=== PATIENT | female | born 1990 | race Caucasian/White ===

== ENCOUNTER → 2019-07-17 15:44 | Outpatient (BNVA) | payer OTHER, SELFPAY | PROVIDERS: Family Provider Family Medicine; PCP Family Medicine; Visit Provider Podiatrist Foot & Ankle Surgery | DX: M79.671 Pain in right foot (principal); M79.672 Pain in left foot | CPT/HCPCS: 73620; 73630 ==

== ENCOUNTER → 2020-02-19 13:39 | Outpatient (BNVA) | payer OTHER, SELFPAY | PROVIDERS: Family Provider Family Medicine; PCP Family Medicine; Visit Provider Internal Medicine | DX: Z20.828 Contact with and (suspected) exposure to other viral communicable diseases (principal) | CPT/HCPCS: 87635 ==

== ENCOUNTER 2020-02-23 04:48 | Emergency (ER) | payer OTHER, SELFPAY ==
[2020-02-23 04:54] VITALS: BP 153/73; PULSE 91; RESP 16; TEMP 36.9; O2SAT 98
--- NOTE | 2020-02-23 05:04 | PC.NURSE ---
Patient ambulatory during triage. Speaking in complete sentences without difficulty. Respirations are even and unlabored.
[2020-02-23 05:18] VITALS: BP 112/69; PULSE 90; RESP 18; O2SAT 96
--- NOTE | 2020-02-23 05:27 | XRR_ITS ---
PROCEDURE INFORMATION: Exam: XR Soft Tissue Neck Exam date and time: 02/23/2020 5:29 AM Age: 30 years old Clinical indication: Throat pain; Additional info: SOB TECHNIQUE: Imaging protocol: XR of the soft tissues of the neck. COMPARISON: No relevant prior studies available. FINDINGS: Airway: Unremarkable. No abnormal narrowing. Soft tissues: Unremarkable. Normal epiglottis. Bones/joints: Small spurs along the anterior margins of the C4-C5 and C5-C6 discs. Probable slight spurring along a few facet joints. No disc narrowing or cervical malalignment. XR/XR soft tissue neck [id number] IMPRESSION: No acute finding.
--- NOTE | 2020-02-23 05:27 | XRR_ITS ---
PROCEDURE INFORMATION: Exam: XR Chest, 1 View Exam date and time: 02/23/2020 5:29 AM Age: 30 years old Clinical indication: Dyspnea; Additional info: SOB TECHNIQUE: Imaging protocol: XR of the chest Views: 1 view. COMPARISON: CR Chest 2 views* [id number] 11/20/2013 2:19 PM FINDINGS: Lungs: No apparent interval lung disease. Pleural space: Still no pneumothorax or apparent pleural fluid. Heart/Mediastinum: Still no cardiomegaly. Bones/joints: Unremarkable. XR/XR chest 1V portable [id number] IMPRESSION: No acute findings.
[2020-02-23] MEDS: HYDROcodone-APAP 7.5-325 mg/15 mL UDC PO (05:37)
[2020-02-23] MEDS: dexamethasone 4 mg Tablet 10 MG PO (05:38)
[2020-02-23 06:00] VITALS: BP 115/82; PULSE 86; RESP 16; O2SAT 95
[2020-02-23] MEDS: ondansetron 4 MG Tablet PO (06:33)
[2020-02-23 06:48] VITALS: BP 120/83; PULSE 91; RESP 16; O2SAT 95
--- NOTE | 2020-02-23 07:29 | ED_ITS ---
HPI - General Adult General: Chief complaint: General Medical Stated complaint: throat swelling Time Seen by Provider: 02/23/20 05:08 History of Present Illness: MD complaint: 80-year-old female with known COVID- 19 presents with a feeling of fullness and soreness in her throat. She notes she is having trouble swallowing, and it is causing her to have trouble breathing. She is not had much in the way of fever. Has had a mild cough. Onset (ago): day(s) Location: neck Radiation: non-radiation Severity: moderate Quality: stabbing and aching Pain Consistency: constant Relieving factors: none Exacerbating factors: other (Swallowing) Associated symptoms: Reports dyspnea, fevers/chills and nausea; Deny chest pain, rash, palpitations or vomiting Review of Systems Const: Reports: fever(s); Denies: chills Eyes: Denies: change in vision Card: Denies: chest pain or palpitations Resp: Reports: dyspnea; Denies: productive cough, non-productive cough or wheezing GI: Reports: nausea; Denies: vomiting Skin/Breast: Denies: rash PFSH ED PFSH: Medical History (Updated 02/23/20 @ 06:30 by Keyshawn Lacey DO) Bunion of great toe of right foot Hx of fracture of clavicle 2002 Surgical History History of open reduction and internal fixation (ORIF) procedure left forearm both bone fracture in 07/2001 Hx of appendectomy Hx of unilateral oophorectomy Left side Family History Family/Other Cancer breast cancer Hypertension Grandmother Diabetes Mother Heart attack Denies family history of CAD (coronary artery disease) Clotting disorder Dementia Hyperlipidemia Psychiatric illness Chronic kidney disease (CKD) Suicide Anesthesia complication Bleeding disorder Family history of premature coronary artery disease Lung disease Stroke Social History Smoking and tobacco status: never smoked Alcohol intake: never Current occupational status: employed Physical Exam Const: COMMON NORMALS: patient oriented x3 HENMT: THROAT: uvula midline and posterior oropharynx abnormal edema and erythema; no peritonsillar mass Chest: COMMONS NORMALS: normal inspection of the chest Resp: COMMON NORMALS: normal respiratory effort, No retractions, No use of accessory muscles and clear to auscultation bilaterally AUSCULTATION: clear to auscultation bilaterally Cardio: COMMON NORMALS: regular rate and regular rhythm RATE: regular rate RHYTHM: regular rhythm HEART SOUNDS: no murmurs GI: COMMON NORMALS: Normal to inspection, nondistended, normoactive bowel sounds present, Soft to palpation and non-tender PALPATION: Yes Soft to palpation Neuro: COMMON NORMALS: patient oriented x3 and no focal motor deficits Course Vital Signs: Vital signs: Vital Signs Temperature 98.4 F 02/23/20 04:54 Pulse Rate 91 02/23/20 06:48 Respiratory Rate 16 02/23/20 06:48 Blood Pressure 120/83 02/23/20 06:48 Pulse Oximetry 95 02/23/20 06:48 Discharge Plan Discharge Patient Disposition: Home Clinical Impression: COVID-19 Acute pharyngitis Qualifiers: Pharyngitis/tonsillitis etiology: other specified organisms Qualified Code(s): J02.8 - Acute pharyngitis due to other specified organisms Condition: Stable Prescriptions: New dexamethasone 6 mg tablet 6 mg PO Q24H Qty: 5 RF: 0 hydrocodone-acetaminophen 7.5-325 mg/15 mL solution 15 ml PO Q8H PRN (Reason: pain) Qty: 120 RF: 0 Discharge Orders: Discharge Order (Routine); Ordered 02/23/20 Ordered By: Keyshawn Lacey Referrals: Josias Owens MD [Primary Care Provider] - 4-7 days Discharge Diet: Advance as tolerated Discharge Activity: Increase activity as tolerated Patient Instructions: Pharyngitis (ED) Activity Restrictions/Additional Instructions: Return for continued fever greater than 100, shortness of breath, worsening pain or swelling of the throat despite treatment, other concerning symptoms. Discharge Date/Time: 02/23/20 06:57 Coding Level of Care Code ED Supervisor Safety Deposit for Hafsa Garsia
== END 2020-02-23 06:57 | disposition home or self-care (01) ==
PROVIDERS: Emergency Provider Emergency Medicine; PCP Family Medicine
DX: U07.1 COVID-19 (principal); J02.8 Acute pharyngitis due to other specified organisms
CPT/HCPCS: 12345; 70360; 71045; 99281; 99283; J8540; Q0162

== ENCOUNTER → 2021-02-17 15:35 | Outpatient (BNVA) | payer OTHER, SELFPAY | PROVIDERS: PCP Family Medicine; Visit Provider Nurse Practitioner Family | DX: R53.83 Other fatigue (principal); H60.509 Unspecified acute noninfective otitis externa, unspecified ear; Z12.39 Encounter for other screening for malignant neoplasm of breast | CPT/HCPCS: 80053; 80061; 82306; 82607; 82728; 83036; 83550; 84443 ==

== ENCOUNTER → 2021-10-11 13:08 | Outpatient (BNVA) | payer OTHER, SELFPAY | PROVIDERS: PCP Internal Medicine; Visit Provider Obstetrics & Gynecology | DX: N91.0 Primary amenorrhea (principal); Z90.721 Acquired absence of ovaries, unilateral | CPT/HCPCS: 76856 ==

== ENCOUNTER → 2022-02-16 08:49 | Outpatient (BNVA) | payer OTHER, SELFPAY | PROVIDERS: PCP Internal Medicine; Visit Provider Podiatrist Foot & Ankle Surgery | DX: M21.612 Bunion of left foot (principal) | CPT/HCPCS: 73630 ==

== ENCOUNTER 2022-04-19 06:39 | Outpatient (CLI) | payer OTHER, SELFPAY ==
--- NOTE | 2022-04-19 07:11 | CT_ITS ---
WS: [id number] CT FACIAL BONES HISTORY: PERSONAL HISTORY OF (HEALED) TRAUMATIC FRACTURE TECHNIQUE: Images obtained from the supraorbital location through the mandible. Soft tissue and bone windows are reviewed. Coronal and sagittal reformats have also been submitted. DLP: 1063.[address] scans at [facility] use at least one of these dose optimization techniques: automated e xposure control; mA and/or kV adjustment per patient size (includes targeted exams where dose is matc hed to clinical indication); or iterative reconstruction. COMPARISON: None available. No acute facial bone fractures are identified. There are no air-fluid levels within the sinus cavitie s. Small mucous retention cyst in the RIGHT maxillary sinus. There is a symmetric appearance to the b ones along the roof and floor the orbit and involving the ethmoid sinuses. Mild soft tissue obstructi on of the RIGHT ostiomeatal unit. There is a small amount of air in the LEFT lacrimal duct and lacrimal sac. This can be a normal varia nt and normal finding. No bony dehiscence or obvious communication between the sinus and orbit is valdemar ntified by CT. There is a very symmetric appearance of the soft tissues. CT/CT facial bones wo con* [id number] IMPRESSION: 1. No orbital fracture or direct communication between the sinus cavities and orbit. 2. There is a small amount of air in the LEFT lacrimal duct and sac which is a normal finding and can be seen with approximately 30% of patients. 3. No fractures, acute or healed identified.
== END 2022-04-19 06:40 | disposition home or self-care (01) ==
PROVIDERS: Visit Provider Specialist
DX: Z87.81 Personal history of (healed) traumatic fracture (principal)
CPT/HCPCS: 70486

== ENCOUNTER 2022-04-28 05:40 | Day surgery (SDC) | payer OTHER, SELFPAY ==
[2022-04-27 09:14] VITALS: BMI 29.8
[2022-04-28] VITALS (18 sets, daily range): BP systolic 87–125; BP diastolic 45–86; PULSE 70–89; RESP 10–22; TEMP 36.1–36.6; O2SAT 98–100
--- NOTE | 2022-04-28 | XR_ITS ---
WS: [id number] XR foot LT 2V [id number] REASON FOR EXAM: left lapidus and buniectormy FINDINGS: Single AP view of the left forefoot in surgery. Plate and screw and long screw fixation of the first tarsal metatarsal joint. XR/XR foot LT 2V [id number] IMPRESSION: Arthrodesis left foot as above.
--- NOTE | 2022-04-28 05:43 | P.HP_ITS ---
Providers/Chief Complaint Chief Complaint: M21.612 History of Present Illness Columba Rios is a 32 year old female presents with complaints of pain to her left foot. She had a progression of bunion deformity with increased pain at her left bunion. History of a bunionectomy performed to her right foot in [place] approximately 2 years ago. States that she would like to have her left bunion fixed as this affects her on a daily basis. Conservative treatments that she has tried to this point are wider and accommodative shoes, stretching, padding and spacing and anti-inflammatories without improvement. She has pain at her left bunion on a daily basis, describes the nature of the pain as sharp and is increased with activities. She works at [employer] and is on her feet for long periods of time. Patient denies any subjective nausea, vomiting, fever, chills, shortness of breath or chest pain. Review of Systems General: Reports: 10 or more systems reviewed and unremarkable except in HPI and below Const: Denies: fever(s) or chills Eyes: Denies: change in vision Card: Denies: chest pain or palpitations Resp: Denies: dyspnea or productive cough GI: Denies: abdominal pain, nausea or vomiting : Denies: flank pain Musc: Reports: extremity pain, joint pain, joint stiffness, limited range of motion and deformity Skin/Breast: Reports: skin tenderness; Denies: rash Neuro: Reports: difficulty walking; Denies: numbness in extremities, sensory changes or frequent falls Psych: Denies: suicidal ideation Niraj/Lymph: Denies: easy bruising Medications/Allergies Home Medications Medication Instructions Recorded Confirmed Last Taken Type ondansetron HCl 8 mg tablet 8 mg PO Q8H PRN nausea and 04/28/22 Unknown Rx vomiting 7 days #21 tabs Allergies Allergy/AdvReac Type Severity Reaction Status Date / Time No Known Allergies Allergy Verified 04/28/22 06:07 PFSH PFSH: Medical History Endometriosis Diagnosed in 2017 at the time of surgery per patient. Records have been requested. No pertinent past medical history Denies diabetes, asthma, hypertension, seizures, DVT/PE PCP: Paty/Shana Manzanares ONLINE MEDIA DIRECTOR Surgical History History of open reduction and internal fixation (ORIF) procedure left forearm both bone fracture in 07/2001 at [facility] Hx of appendectomy 2014--Pfannenstiel open procedure performed at time of left ovarian cystectomy--performed at [facility] Hx of fracture of clavicle 2002---had surgery done with plates placed Hx of unilateral oophorectomy 01/05/2017----- exploratory laparotomy, hysteroscopy, D&C, left salpingo- oophorectomy performed by Dr. Little at [facility]. ------> operative reports requested and scanned. Hysteroscopy was performed for menorrhagia and endometrium was noted to be thin, bilateral tubal ostia were visualized and ECC performed. Pfannenstiel incision done--moderate adhesions of the small bowel to the posterior uterus left adnexa and right fallopian tube the left tube and ovary were removed--endometrioma was noted. S/P ovarian cystectomy 03/21/2015----diagnostic laparoscopy, exploratory laparotomy with repair of left hemorrhagic cyst of the ovary performed by Dr. Cronin at [facility]. Simultaneously laparoscopic appendectomy performed by Dr. Saji Forbes. - operative reports have been requested and scanned -At time of diagnostic laparoscopy a lot of fibrinous exudate was noted around the bowel and general surgery was consulted and appendix was visualized which was noted to be inflamed and removed. When pelvis was visualized an enlarged left ovary was noted with hemorrhagic cyst and a lot of fibrinous exudate and so laparotomy was performed. The hemorrhagic cyst was opened and suctioned out and no obvious signs of endometriosis identified however a portion of the lining was sent for pathology. Ovary was repaired and fibrinous exudate removed and irrigation performed and surgery completed. Status post bunionectomy Had a bunion removed from her right foot in [facility] Status post excision of lipoma 2017--had a benign lipoma removed from her upper back Family History Family/Other Breast cancer Maternal aunts x 2, diagnosed in 40s and 50s Grandmother Diabetes paternal Heart disease maternal Mother Heart disease Hypertension Father Hypertension Grandfather Stroke maternal Denies family history of Colon cancer Ovarian cancer Hyperlipidemia Uterine cancer Thyroid condition Social History Smoking and tobacco status: never smoked Vital Signs Weight: Weight last 48 hrs Weight 185 lb Physical Exam Narrative: EXAM NARRATIVE: GENERAL: Patient is alert and oriented ?3 and in no acute distress.? The following is a focused bilateral lower extremity exam. VASCULAR: Dorsalis pedis and posterior tibial arteries palpable +2.? Capillary refill time less than 3 seconds to the distal hallux bilaterally. Calf is supple and nontender proximally and distally.? No pedal edema appreciated.? Pedal hair growth present. NEUROLOGICAL: Epicritic and protopathic sensations grossly intact to the lower extremities.? +2 Achilles tendon reflex noted bilaterally.? Negative Tinel sign upon percussion of lower extremity nerves. DERMATOLOGICAL: Lower extremity skin is well-hydrated, normal texture and turgor.? There are no open sores or lesions noted to the lower extremities.? No erythema or ecchymosis present to the bilateral legs and feet.? Cicatrix to the right bunionectomy. MUSCULOSKELETAL: Osseous prominence at the medial aspect of the left first metatarsal phalangeal joint, hallux valgus appreciated. Left hallux is not track bound. Range of motion at the left first metatarsophalangeal joint is 65 degrees of dorsiflexion and 40 degrees of plantarflexion with minor discomfort. Pain to palpation at the medial aspect of the left first metatarsal phalangeal joint. Hypermobility at the left foot first ray in the sagittal plane. Mild pes planus foot type. Ankle joint dorsiflexion 8 degrees beyond neutral. Mu scle strength is 5 out of 5 in all 3 planes to the left and right foot and ankle. CARDIOVASCULAR: S1, S2, normal rate, normal rhythm. Dorsalis pedis and posterior tibial arteries palpable. LUNGS: Clear to auscltation, no use of acessory muscles, no crackles or wheezes. A&P Assessment and plan (1) Left foot pain: (2) Bunion, left: Plan Patient requesting surgical consultation for left bunion deformity.? Would like to have this done at our hospital.? Had her right bunion done in [place].? Has pain on a daily basis and is failed to respond to wider accommodative shoes, padding, spacing, stretching anti-inflammatories and orthotics for her left bunion. I reviewed at length with the patient, the risks, potential complications, benefits, alternatives, expectations, and typical outcomes associated with the surgery. The risks and potential complications were explained in detail, in cluding but not limited to infection, wound dehiscence or soft tissue complications, bleeding and hematoma, chronic edema, neuritis or nerve damage producing numbness or chronic pain, CRPS, failure to relieve pain or worsening pain, thick / painful / unsightly scar, limited motion / stiffness, malposition, delayed union, malunion, or nonunion, fracture, reaction to implants, anesthetic complications, venous thromboembolism, and deformity recurrence.? I discussed the notion of no regrets with the patient as it pertains to complications and outcomes. The patient seemed to understand the nature of the proposed care and required convalescence. They asked appropriate questions, answered to their satisfaction. They are aware no guarantees can be made as to a satisfactory outcome and they understand there may be other possible unforeseen complications or outcomes not listed here that will be treated accordingly if they arise. There were no written or implied guarantees given to the patient. They gave informed consent to proceed. Discussed x-rays left foot (shows mild progression) first intermetatarsal angle of 7 degrees true IM 13 degrees. Discussed recovery times, expected return to work without restrictions 3 months postoperatively. 04/28/2022, outpatient, general anesthetic versus local MAC per anesthesia preference, popliteal block per anesthesia preoperatively would be appreciated, left lower extremity. Gurney, supine, mini C arm, TPS, Garwood 28, 60 minutes. Coding Level of Care Code Acute Medical Clinic Manager for Ninag Fwd Diagnoses Left foot pain M79.672 Bunion, left M21.612
--- NOTE | 2022-04-28 05:51 | W.PM.OPSUD ---
Surgery/Procedure H&P Update DATE OF PROCEDURE: April 28, 2022 DATE H&P PERFORMED: 04/28/22 CHANGES TO PREVIOUS DOCUMENTATION: None PLANNED PROCEDURE: Operation Date: 04/28/22 07:00 Proposed Procedures p Left Lapidus and Tristni bunionectomy. CPT code: 39858, 19520 M21.612,M79.673(Left) - Guicho Ann DPM s Bunionectomy Lapidus(Left) - Guicho Ann DPM
--- NOTE | 2022-04-28 05:51 | PM.OP ---
Operative Report Date of procedure: April 28, 2022 Pre-op diagnosis: Left bunion deformity Post-op diagnosis: Left bunion deformity Post-op findings: None Procedure done: Left Lapidus bunionectomy. CPT code: 67031 Implants: Upham 28 4.0 mm headless homerun screw. Upham 28 primary Lapidus arthrodesis plate with 3.5 mm locking and nonlocking screws 3-0 Vicryl 4-0 Vicryl 4-0 nylon Specimens removed/disposition: None Pathology: None Surgeon: Guicho Ann D.P.M. Residential [employer] Sealing Technician: Allan Estimated blood loss: 5 42 IV fluids: 0 Urine output: 0 Complications: None Findings: Improved anatomic alignment of left first intermetatarsal angle. Brief History: Patient requesting surgical consultation for left bunion deformity.? Would like to have this done at our hospital.? Had her right bunion done in [place].? Has pain on a daily basis and is failed to respond to wider accommodative shoes, padding, spacing, stretching anti-inflammatories and orthotics for her left bunion. I reviewed at length with the patient, the risks, potential complications, benefits, alternatives, expectations, and typical outcomes associated with the surgery. The risks and potential complications were explained in detail, including but not limited to infection, wound dehiscence or soft tissue complications, bleeding and hematoma, chronic edema, neuritis or nerve damage producing numbness or chronic pain, CRPS, failure to relieve pain or worsening pain, thick / painful / unsightly scar, limited motion / stiffness, malposition, delayed union, malunion, or nonunion, fracture, reaction to implants, anesthetic complications, venous thromboembolism, and deformity recurrence.? I discussed the notion of no regrets with the patient as it pertains to complications and outcomes. The patient seemed to understand the nature of the proposed care and required convalescence. They asked appropriate questions, answered to their satisfaction. They are aware no guarantees can be made as to a satisfactory outcome and they understand there may be other possible unforeseen complications or outcomes not listed here that will be treated accordingly if they arise. There were no written or implied guarantees given to the patient. They gave informed consent to proceed.? Discussed x-rays left foot (shows mild progression) first intermetatarsal angle of 7 degrees true IM 13 degrees.? Discussed recovery times, expected return to work without restrictions 3 months postoperatively. Procedure: Under mild sedation the patient was brought to the operating room and remained on the gurney in supine position. A timeout was performed. Anesthesia was then administered by the anesthesia service. Of note left popliteal block performed per anesthesia preoperatively. Well-padded pneumatic tourniquet was applied to the left ankle. The left lower extremity was then scrubbed, prepped and draped utilizing normal aseptic technique. The left foot was then exanguinated with an Esmarch bandage and the tourniquet inflated to 250 mmHg. Attention was directed to the dorsal medial aspect of the left first metatarsal base and medial cuneiform joint where a curvilinear incision was made through skin with a #15 blade with dissection carried down through subcutaneous tissue down the layer of periosteum utilizing a combination of blunt and sharp technique. Care was taken to retract and preserve neurovascular and tendinous structures. All bleeders were ligated and cauterized as necessary. A linear periosteal incision was made with a #15 blade and the base of the first metatarsal and distal aspect of the medial cuneiform of the left foot were freed of their soft tissue and capsular attachments followed by curettage of all cartilage, saline flush followed by subchondral drilling and fish scaling with osteotome to prepare for arthrodesis. More aggressive prep and curettage as well as subchondral drilling was performed laterally as to facilitate reduction of the intermetatarsal angle and more parallel to the second metatarsal this was achieved followed by temporary fixation. Anatomic alignment was achieved with minimal shortening of the first metatarsal. Next using standard AO technique a Upham 28 4.0 mm headed screw partially-threaded cannulated was advanced dorsal distal to proximal plantar with excellent bony apposition and compression noted followed by fixation with Upham 28 primary Lapidus plate with 3 locking screws and one nonlocking screw all 3.5 mm in diameter. The first intertarsal angle was reduced, this was confirmed with AP, oblique and lateral views with intraoperative C arm, excellent placement of hardware also appreciated without violating adjacent joints of arthrodesis site. The medial column was rectus and decision was made to not perform an Pierre Part osteotomy as this was not needed. The incision was flushed with copious amounts of sterile skin solution followed by closure with 3-0 Vicryl at periosteum, 4-0 Vicryl subcutaneous tissue and skin with 4-0 nylon. Exparel was injected 10 cc of Exparel expanded with 10 cc of Marcaine and a proximal Matson block to the left foot. The incision was dressed with Adaptic, sterile 4 x 4, Kerlix and Edjon wrap followed by application of a cam boot to the left lower extremity. The tourniquet was then deflated and a prompt hyperemic response is noted to the distal digits of the left foot. Patient tolerated the procedure and anesthesia well and was transferred to the PACU with vital signs stable and vascular status intact. Following a period of postoperative monitoring she will be discharged home is to be nonweightbearing to the left lower extremity and elevate while resting. I advised an 81 mg aspirin once daily beginning day after surgery to help potentially due to the risk of deep vein thrombosis. She was provided at home care instructions as well as myself number to contact with any postoperative questions or concerns.
[2022-04-28 06:26] LABS: OR HCG Qualitative Urine Negative (Negative)
[2022-04-28] MEDS: gabapentin 300 mg Capsule PO (06:27)
[2022-04-28] MEDS: CELEcoxib 200 mg Capsule 400 MG PO (06:27)
[2022-04-28] MEDS: sodium chloride 0.9% 1,000 ML 30 ML IV (06:27)
--- NOTE | 2022-04-28 06:31 | P.ANESASSM_ITS ---
Pre-Anesthetic Assessment Height/Weight: Height 1.68 m Weight 83.915 kg Temp Pulse Resp BP Pulse Ox O2 Del Method 97.7 F 89 18 125/65 99 04/28/22 06:04 04/28/22 06:04 04/28/22 06:04 04/28/22 06:04 04/28/22 06:04 04/28/22 06:12 Preop Diagnosis: Left bunion deformity Operation Date: 04/28/22 07:00 Proposed Procedures p Left Lapidus and Tristin bunionectomy. CPT code: 39705, 25248 M21.612,M79.673(Left) - Guicho Ann DPM s Bunionectomy Lapidus(Left) - Guicho Ann DPM Familial anesthetic complications: N/V, hard to wake up Was Beta Fara taken within 24 hours: N/A Was Clonidine taken within 24 hours: N/A Last intake: Intake Last Liquid Date 04/27/22 Last Liquid Time 20:30 Last Solid Date 04/27/22 Last Solid Time 20:00 Social No alcohol and No tobacco Exam alert, oriented x 3, clear to auscultation bilaterally and regular rate & rhythm Airway Submandibular: within normal limits Cervical ROM: within normal limits Mallampati: Class II Dentition: full History/ROS No significant history except as noted and No significant complaints Pulmonary None reported CV/HEM None reported None reported Hepatic None reported GI None reported Metabolic None reported Musc/skel None reported Neuropsych Anxiety and Depression Anesthetic Plan ASA status: 2 Anesthesia: General and MAC Risk of > 500 ml blood loss (7ml/kg in children): No Medications/Allergies Home Medications Medication Instructions Recorded Confirmed Last Taken Type ondansetron HCl 8 mg tablet 8 mg PO Q8H PRN nausea and 04/28/22 Unknown Rx vomiting 7 days #21 tabs Allergies Allergy/AdvReac Type Severity Reaction Status Date / Time No Known Allergies Allergy Verified 04/28/22 06:07 Current Medications Generic Name Dose Route Start Last Admin Trade Name Freq PRN Reason Stop Dose Admin Sodium Chloride 1,000 mls @ 30 mls/hr 04/28/22 06:00 04/28/22 06:27 Sodium Chloride 0.9% IV 04/29/22 05:59 30 mls/hr .Q24H ZACH Administration PFSH Anesthesia Medical History Endometriosis Diagnosed in 2017 at the time of surgery per patient. Records have been requested. No pertinent past medical history Denies diabetes, asthma, hypertension, seizures, DVT/PE PCP: Paty/Shana Manzanares NP Surgical History History of open reduction and internal fixation (ORIF) procedure left forearm both bone fracture in 07/[address] [facility] Hx of appendectomy 2014--Pfannenstiel open procedure performed at time of left ovarian cystectomy--performed at [facility] Hx of fracture of clavicle 2002---had surgery done with plates placed Hx of unilateral oophorectomy 01/05/2017----- exploratory laparotomy, hysteroscopy, D&C, left salpingo- oophorectomy performed by Dr. Little at [facility]. ------> operative reports requested and scanned. Hysteroscopy was performed for menorrhagia and endometrium was noted to be thin, bilateral tubal ostia were visualized and ECC performed. Pfannenstiel incision done--moderate adhesions of the small bowel to the posterior uterus left adnexa and right fallopian tube the left tube and ovary were removed--endometrioma was noted. S/P ovarian cystectomy 03/21/2015----diagnostic laparoscopy, exploratory laparotomy with repair of left hemorrhagic cyst of the ovary performed by Dr. Cronin at [facility]. Simultaneously laparoscopic appendectomy performed by Dr. Saji Forbes. - operative reports have been requested and scanned -At time of diagnostic laparoscopy a lot of fibrinous exudate was noted around the bowel and general surgery was consulted and appendix was visualized which was noted to be inflamed and removed. When pelvis was visualized an enlarged left ovary was noted with hemorrhagic cyst and a lot of fibrinous exudate and so laparotomy was performed. The hemorrhagic cyst was opened and suctioned out and no obvious signs of endometriosis identified however a portion of the lining was sent for pathology. Ovary was repaired and fibrinous exudate removed and irrigation performed and surgery completed. Status post bunionectomy Had a bunion removed from her right foot in [facility] Status post excision of lipoma 2017--had a benign lipoma removed from her upper back Family History Family/Other Breast cancer Maternal aunts x 2, diagnosed in 40s and 50s Grandmother Diabetes paternal Heart disease maternal Mother Heart disease Hypertension Father Hypertension Grandfather Stroke maternal Denies family history of Colon cancer Ovarian cancer Hyperlipidemia Uterine cancer Thyroid condition Social History Smoking and tobacco status: never smoked Data Anesthesia Cardiac Studies: No Data to Display
[2022-04-28] MEDS: ceFAZolin 2,000 MG in sodium chloride 0.9% (plus) 50 ML 100 MG IV (07:03)
--- NOTE | 2022-04-28 07:37 | ANES.PROC ---
Anesthesia Procedures Procedure/Date: 04/28/22 Nerve Block ^: Nerve Block 1: Main Anesthesia: general anesthesia Time Out Performed: Yes Consent: requested by attending/covering physician, from patient, risks and benefits reviewed and patient agrees to proceed Nerve block location: popliteal (L) Anesthesia monitors applied: pulse oximetry, EKG, BP cuff and oxygen Nerve block position: supine Anesthetic Used: ropivicaine 0.5% (30 ml) and with decadron (4 mg) Ultrasound used to: recognize landmarks Nerve Stimulator Used?: No Interscalene/Femoral BLK: 4 stimuplex 21 g needle used for position and inplane approach, visualize local anesthetic spread and no vascular puncture identified Injection: neg aspiration of heme Patient Tolerated Procedure: well Complications: none
--- NOTE | 2022-04-28 08:20 | SUR.PHASEI ---
08:08 RECEIVED PT FROM OR STAFF..VENTILATING WELL NSR ON MONITOR.LOWER EXTREMITIES RAISED.
--- NOTE | 2022-04-28 08:26 | SUR.PHASEI ---
08:27 ORAL AIRWAY DC'ED.AIRWAY PATENT..RESPONDING TO VERBAL. NSR ON MONITOR.
--- NOTE | 2022-04-28 15:52 | ANE.PACU2 ---
Inpatient post-anesthesia follow up: Airway intact: Yes Vital signs: Temperature 96.9 F Pulse Rate 78 Respiratory Rate 18 Blood Pressure 118/72 Pulse Oximetry 99 Oxygen Delivery Me thod Room Air Oxygen Flow Rate 8 Fraction of Inspir ed Oxygen Hydration adequate: Yes Nausea and vomiting: No Pain level: 1 Mental status: Baseline
== END 2022-04-28 10:34 | disposition home or self-care (01) ==
PROVIDERS: Anesthesiology; Visit Provider Podiatrist Foot & Ankle Surgery
PROC: (CPT 28298; principal; 2022-04-28 07:00)
PROC: (CPT 28297; 2022-04-28 07:00)
DX: M21.612 Bunion of left foot (principal); M79.672 Pain in left foot
CPT/HCPCS: 28297; 73620; 76000; 81025; 84703; C1713; C9290; J0690; J1100; J1200; J2250; J2405; J2704; J2795; J3010; J3490; J7030

== ENCOUNTER → 2022-05-11 11:23 | Outpatient (BNVA) | payer OTHER, SELFPAY | PROVIDERS: Visit Provider Podiatrist Foot & Ankle Surgery | DX: Z98.890 Other specified postprocedural states (principal) | CPT/HCPCS: 73630 ==

== ENCOUNTER → 2022-06-02 13:58 | Outpatient (BNVA) | payer OTHER, SELFPAY | PROVIDERS: PCP Family Medicine; Visit Provider Podiatrist Foot & Ankle Surgery | DX: Z98.890 Other specified postprocedural states (principal); M21.612 Bunion of left foot | CPT/HCPCS: 73630 ==

== ENCOUNTER → 2022-06-16 12:48 | Outpatient (BNVA) | payer OTHER, SELFPAY | PROVIDERS: PCP Family Medicine; Visit Provider Podiatrist Foot & Ankle Surgery | DX: Z98.890 Other specified postprocedural states (principal) | CPT/HCPCS: 73630 ==

== ENCOUNTER → 2022-06-30 13:11 | Outpatient (BNVA) | payer OTHER, SELFPAY | PROVIDERS: PCP Family Medicine; Visit Provider Podiatrist Foot & Ankle Surgery | DX: Z98.890 Other specified postprocedural states (principal) | CPT/HCPCS: 73630 ==

== ENCOUNTER → 2022-07-06 16:01 | Outpatient (BNVA) | payer OTHER, SELFPAY | PROVIDERS: PCP Family Medicine; Visit Provider Podiatrist Foot & Ankle Surgery | DX: M79.672 Pain in left foot (principal); M72.2 Plantar fascial fibromatosis | CPT/HCPCS: 73630 ==

== ENCOUNTER → 2023-01-11 13:28 | Outpatient (BNVA) | payer OTHER, SELFPAY | PROVIDERS: PCP Family Medicine; Visit Provider Specialist | DX: S52.202A Unspecified fracture of shaft of left ulna, initial encounter for closed fracture; S52.302A Unspecified fracture of shaft of left radius, initial encounter for closed fracture; W11.XXXA Fall on and from ladder, initial encounter | CPT/HCPCS: 73090 ==

== ENCOUNTER 2023-02-21 11:05 | Emergency (ER) | payer OTHER, SELFPAY ==
[2023-02-21 11:06] VITALS: BP 150/91; PULSE 104; RESP 16; TEMP 36.9; O2SAT 98; BMI 26.1
--- NOTE | 2023-02-21 11:15 | XRR_ITS ---
PROCEDURE INFORMATION: Exam: XR Left Finger(s) Exam date and time: 02/21/2023 11:25 AM Age: 33 years old Clinical indication: Injury or trauma; Hand and finger; Left; Injury details: Laceration to top of lt ring fingers; Additional info: Ring/trauma-laceration TECHNIQUE: Imaging protocol: Radiologic exam of the left fingers. Views: Minimum 2 views. COMPARISON: No relevant prior studies available. FINDINGS: Bones/joints: Normal. Soft tissues: Normal. XR/XR finger LT min 2V [id number] IMPRESSION: No acute findings.
--- NOTE | 2023-02-21 11:16 | W.ED.WOUNDLC ---
HPI - Wound/Laceration General: Chief Complaint: Wound/Laceration Stated Complaint: cut finger left hand Time Seen by Provider: 02/21/23 11:07 Source: patient Mode of arrival: ambulatory Limitations: no limitations History of Present Illness: Patient is a nice 33-year-old [employer] employee here for a Worker's Comp. injury. Patient states just prior to arrival she cut her left ring finger using a box knife. Tetanus is up-to-date. Onset (ago): hour(s) Extremity Location: Left: hand (L ring finger) Place: work Patient tetanus UTD: Yes Context: accidental Associated symptoms: Reports no associated symptoms Review of Systems Musc: Reports: extremity pain (L ring finger) Skin/Breast: Reports: other (laceration L ring finger) Neuro: Denies: numbness in extremities, weakness in extremities or sensory changes PFS ED PFSH: Medical History Endometriosis Diagnosed in 2017 at the time of surgery per patient. Records have been requested. Surgical History History of bunionectomy of left great toe History of open reduction and internal fixation (ORIF) procedure left forearm both bone fracture in 07/2001 at [facility] Hx of appendectomy 2014--Pfannenstiel open procedure performed at time of left ovarian cystectomy--performed at [facility] Hx of fracture of clavicle 2002---had surgery done with plates placed Hx of unilateral oophorectomy 01/05/2017----- exploratory laparotomy, hysteroscopy, D&C, left salpingo-oophorectomy performed by Dr. Little at [facility]. ------> operative reports requested and scanned. Hysteroscopy was performed for menorrhagia and endometrium was noted to be thin, bilateral tubal ostia were visualized and ECC performed. Pfannenstiel incision done--moderate adhesions of the small bowel to the posterior uterus left adnexa and right fallopian tube the left tube and ovary were removed--endometrioma was noted. S/P ovarian cystectomy 03/21/2015----diagnostic laparoscopy, exploratory laparotomy with repair of left hemorrhagic cyst of the ovary performed by Dr. Cronin at [facility]. Simultaneously laparoscopic appendectomy performed by Dr. Saji Forbes. - operative reports have been requested and scanned -At time of diagnostic laparoscopy a lot of fibrinous exudate was noted around the bowel and general surgery was consulted and appendix was visualized which was noted to be inflamed and removed. When pelvis was visualized an enlarged left ovary was noted with hemorrhagic cyst and a lot of fibrinous exudate and so laparotomy was performed. The hemorrhagic cyst was opened and suctioned out and no obvious signs of endometriosis identified however a portion of the lining was sent for pathology. Ovary was repaired and fibrinous exudate removed and irrigation performed and surgery completed. Status post bunionectomy Had a bunion removed from her right foot in [facility] Status post excision of lipoma 2017--had a benign lipoma removed from her upper back Family History Family/Other Breast cancer Maternal aunts x 2, diagnosed in 40s and 50s Grandmother Diabetes paternal Heart disease maternal Mother Heart disease Hypertension Father Hypertension Grandfather Stroke maternal Denies family history of Colon cancer Ovarian cancer Hyperlipidemia Uterine cancer Thyroid condition Social History Smoking and tobacco status: never smoked Substance/Drug Use: never Lives independently: Yes Household members: none Marital status: Single Number of children: 0 Current occupational status: employed Current occupation: sterile processing for [employer] Physical Exam Const: COMMON NORMALS: no acute distress, average body habitus, no limitations, healthy appearing and alert Extremity: COMMON NORMALS: full ROM and capillary refill normal GENERAL: Yes normal exam except as noted LEFT UPPER EXTREMITY: Yes hand & digits (1cm laceration near dorsal PIP joint L ring finger) Left hand and digits: Yes ROM (full ROM against resistance in all plains), Yes neurovascular exam (normal) and Yes tendon exam (normal) Neuro: COMMON NORMALS: moves all extremities, no focal motor deficits and no sensory deficits noted SENSORIUM/ORIENTATION: Yes alert Skin: TRAUMA: laceration Procedures Laceration Laceration 1: Site: hand (L ring finger) Side (If applicable): left Size (cm): 1.0 Description: linear Depth: simple, single layer Local Anesthetic: lidocaine 2% Amount of anesthesia used (mL): 0.5 Pre-repair: wound explored and irrigated extensively Skin layer closed with: nylon Size (cm): 5-0 Number of sutures: 2 Technique: simple, interrupted Course Vital Signs: Vital signs: Vital Signs Temperature 98.4 F 02/21/23 11:06 Pulse Rate 104 H 02/21/23 11:06 Respiratory Rate 16 02/21/23 11:06 Blood Pressure 150/91 02/21/23 11:06 Pulse Oximetry 98 02/21/23 11:06 Oxygen Delivery Me thod Room Air 02/21/23 11:06 MDM - Wound/Laceration Medical Decision Making XR negative. No tendon involvement. Wound was copiously irrigated and repaired as documented. Tetanus is up-to-date. She will follow-up with Worker's Comp. XR interpretation done by ED provider, pending radiology final review Discharge Plan Discharge Patient Disposition: Home Clinical Impression: Laceration of left ring finger Qualifiers: Encounter type: initial encounter Damage to nail status: without damage Foreign body presence: without foreign body Qualified Code(s): S61.215A - Laceration without foreign body of left ring finger without damage to nail, initial encounter Condition: Stable Prescriptions: No Action mupirocin 2 % ointment 1 applic topical BID Qty: 15 0RF Discharge Orders: Discharge ED (Routine); Ordered 02/21/23 Ordered By: Ladonna Daíz Referrals: Evon Levi MD [Primary Care Provider] - Patient Instructions: Care For Your Stitches (DC), Finger Laceration (ED) Activity Restrictions/Additional Instructions: Keep wound/laceration clean with warm soap and water twice daily. Monitor for signs of infection such as redness, swelling, increased pain, or drainage. Please seek medical re-evaluation if these occur. If you received sutures today these will need to be removed (unless you were told by the provider that they are absorbable). The provider should have discussed with you the length of time until removal-7 DAYS. You may return to the emergency department for this service. Follow up with Worker's Comp as directed. Coding Level of Care Code ED Electroformer for Hafsa Garsia
--- NOTE | 2023-02-21 11:57 | PC.NURSE ---
After MAYELA Jaquez finished placing stitches in the patient's finger, I then dressed her finger with a non-adherent dressing and wrapped it with gauze to protect it.
== END 2023-02-21 12:02 | disposition home or self-care (01) ==
PROVIDERS: Emergency Provider Physician Assistant; PCP Family Medicine
DX: S61.215A Laceration without foreign body of left ring finger without damage to nail, initial encounter (principal); W26.0XXA Contact with knife, initial encounter; Y99.0 Civilian activity done for income or pay
CPT/HCPCS: 12001; 73140; 99283; A6446

== ENCOUNTER → 2023-03-27 08:29 | Outpatient (BNVA) | payer OTHER, SELFPAY | PROVIDERS: PCP Family Medicine; Visit Provider Family Medicine | DX: Z00.00 Encounter for general adult medical examination without abnormal findings (principal) | CPT/HCPCS: 87426 ==

== ENCOUNTER → 2023-04-05 08:16 | Outpatient (BNVA) | payer OTHER, SELFPAY | PROVIDERS: PCP Family Medicine; Visit Provider Family Medicine | DX: Z00.00 Encounter for general adult medical examination without abnormal findings (principal) | CPT/HCPCS: 80053; 80061; 84443; 85025 ==

== ENCOUNTER 2023-06-28 13:52 | Outpatient (CLI) | payer OTHER, SELFPAY ==
--- NOTE | 2023-06-28 13:58 | XR_ITS ---
WS: [id number] PA chest with right rib detail, 3 views, 06/28/2023 Clinical Data: rt rib pain Comparison: Portable chest, 02/23/2020 Findings: No nodules, masses or effusions are seen. The heart is normal. The pulmonary vascularity is not incre ased. No pneumonia or pneumothorax is present. The right ribs show no fractures. No subcutaneous emphysema is seen. Impression: Negative chest with right rib detail.
== END 2023-06-28 13:53 | disposition home or self-care (01) ==
LOC: RAD 13:54
PROVIDERS: PCP Family Medicine; Visit Provider Family Medicine
DX: R07.81 Pleurodynia (principal)
CPT/HCPCS: 71100

== ENCOUNTER → 2023-08-23 14:52 | Outpatient (BNVA) | payer OTHER, SELFPAY | PROVIDERS: PCP Family Medicine; Visit Provider Specialist | DX: G56.02 Carpal tunnel syndrome, left upper limb; S52.202S Unspecified fracture of shaft of left ulna, sequela; S52.302 Unspecified fracture of shaft of left radius; X58.XXXS Exposure to other specified factors, sequela | CPT/HCPCS: 73110 ==

== ENCOUNTER → 2023-11-15 09:21 | Outpatient (CLI) | payer OTHER, SELFPAY ==
[2023-11-15] MEDS: iohexol 350 mg/mL 500 mL Btl (per mL) PO (10:13)
--- NOTE | 2023-11-15 10:30 | CTR_ITS ---
PROCEDURE INFORMATION: Exam: CT Abdomen And Pelvis With Contrast Exam date and time: 11/15/2023 10:46 AM Age: 33 years old Clinical indication: Abdominal pain; Generalized; Prior surgery; Surgery date: 6+ months; Surgery type: Ovarian cyst, ovaries; Patient HX: Chronic pain before bowel movement x 7 years; Additional info: Chronic abdominal pain TECHNIQUE: Imaging protocol: Computed tomography of the abdomen and pelvis with contrast. Axial, coronal and sagittal reformatted images were created and reviewed. Radiation optimization: All CT scans at this facility use at least one of these dose optimization techniques: automated exposure control; mA and/or kV adjustment per patient size (includes targeted exams where dose is matched to clinical indication); or iterative reconstruction. Contrast material: OMNI 350; Contrast volume: 100 ml; Contrast route: INTRAVENOUS (IV); COMPARISON: US pelvic complete* [id number] 10/11/2021 1:09 PM RADIATION DOSE METRICS: Total DLP (mGy-cm): 372.54 FINDINGS: Liver: Unremarkable. Gallbladder and bile ducts: No radiodense gallstones. No biliary ductal dilatation. Pancreas: Unremarkable. Spleen: Unremarkable. Adrenal glands: Normal. No mass. Kidneys and ureters: No mass. No radiodense calculi. No hydronephrosis. Stomach and bowel: No bowel wall thickening. No obstruction. No pneumatosis. Appendix: Appendix not identified with certainty but no right lower quadrant inflammatory change to suggest acute appendicitis. Intraperitoneal space: No free fluid. No organized fluid collection. No free air. Vasculature: Unremarkable. No aneurysm. Lymph nodes: No pathologically enlarged lymph nodes. Urinary bladder: Unremarkable as visualized. Reproductive: Unremarkable. Bones/joints: No acute osseous abnormality. Mild degenerative changes. Soft tissues: Unremarkable. CT/CT abdomen pelvis w con* [id number]: 1[address] No CT evidence of acute intra-abdominal or pelvic pathology. 2. Additional findings, as above.
[2023-11-15] MEDS: iohexol 350 mg/mL 500 mL Btl (per mL) IV (10:54)
== END | disposition home or self-care (01) ==
LOC: RAD 09:21
PROVIDERS: PCP Family Medicine; Visit Provider Surgery
DX: R10.9 Unspecified abdominal pain (principal); G89.29 Other chronic pain
CPT/HCPCS: 74177; Q9967

== ENCOUNTER → 2023-12-18 14:02 | Outpatient (BNVA) | payer OTHER, SELFPAY | PROVIDERS: PCP Family Medicine; Visit Provider Specialist | DX: G56.22 Lesion of ulnar nerve, left upper limb (principal); M25.532 Pain in left wrist | CPT/HCPCS: 73090; 73110 ==

== ENCOUNTER 2023-12-19 13:42 | Outpatient (CLI) | payer OTHER, SELFPAY | END 2023-12-19 13:43 | disposition home or self-care (01) | LOC: LAB 13:44 | PROVIDERS: PCP Family Medicine; Visit Provider Surgery | DX: G89.29 Other chronic pain (principal); R19.8 Other specified symptoms and signs involving the digestive system and abdomen | CPT/HCPCS: 82274; 83630 ==

== ENCOUNTER 2023-12-20 09:54 | Outpatient (CLI) | payer OTHER, SELFPAY ==
--- NOTE | 2023-12-20 10:00 | MM_ITS ---
WS: [id number] DIAGNOSTIC BILATERAL DIGITAL BREAST TOMOSYNTHESIS MAMMOGRAPHY WITH CAD LEFT breast ultrasound, limited HISTORY: lump in lt breast, 12 oclock position COMPARISON: None available. TECHNIQUE: Bilateral craniocaudad, mediolateral oblique, and mediolateral views are submitted with to mosynthesis and SM. Spot compression CC and MLO. Computer aided detection utilized. Breast composition: The breasts are extremely dense, which lowers the sensitivity of mammography. Mar ker is placed at 12:00 mid to posterior depth LEFT breast. There is no underlying mass identified. No distortion. There is very dense fibroglandular density within each breast. LEFT breast ultrasound, limited. Ultrasound centered around the 12:00 axis of the LEFT breast. Ultrasound is also extended to the 10 a nd 2:00 locations. There is dense fibroglandular tissue but no mass or mass effect. No mass identifie d. The RIGHT breast is imaged in a similar location for comparison and there is a very similar appear ance to the breast tissue. MM/[place] [id number] IMPRESSION: BI-RADS: 2-Benign FOLLOW UP: See Report Very dense fibroglandular breast tissue. No mass or distortion. LACK OF RADIOGRAPHIC EVIDENCE OF MALIGNANCY SHOULD NOT DELAY BIOPSY IF A CLINIC ALLY SUSPICIOUS MASS IS PRESENT.
--- NOTE | 2023-12-20 11:04 | US_ITS ---
WS: [id number] DIAGNOSTIC BILATERAL DIGITAL BREAST TOMOSYNTHESIS MAMMOGRAPHY WITH CAD LEFT breast ultrasound, limited HISTORY: lump in lt breast, 12 oclock position COMPARISON: None available. TECHNIQUE: Bilateral craniocaudad, mediolateral oblique, and mediolateral views are submitted with to mosynthesis and SM. Spot compression CC and MLO. Computer aided detection utilized. Breast composition: The breasts are extremely dense, which lowers the sensitivity of mammography. Mar ker is placed at 12:00 mid to posterior depth LEFT breast. There is no underlying mass identified. No distortion. There is very dense fibroglandular density within each breast. LEFT breast ultrasound, limited. Ultrasound centered around the 12:00 axis of the LEFT breast. Ultrasound is also extended to the 10 a nd 2:00 locations. There is dense fibroglandular tissue but no mass or mass effect. No mass identifie d. The RIGHT breast is imaged in a similar location for comparison and there is a very similar appear ance to the breast tissue. US/US breast LT limited* [id number] IMPRESSION: BI-RADS: 2-Benign FOLLOW UP: See Report Very dense fibroglandular breast tissue. No mass or distortion. LACK OF RADIOGRAPHIC EVIDENCE OF MALIGNANCY SHOULD NOT DELAY BIOPSY IF A CLINIC ALLY SUSPICIOUS MASS IS PRESENT.
== END 2023-12-20 09:55 | disposition home or self-care (01) ==
LOC: RAD 09:55
PROVIDERS: PCP Family Medicine; Visit Provider Family Medicine
DX: R92.8 Other abnormal and inconclusive findings on diagnostic imaging of breast (principal); R92.343 Mammographic extreme density, bilateral breasts; R92.323 Mammographic fibroglandular density, bilateral breasts
CPT/HCPCS: 76642; 77062; G0279

== ENCOUNTER 2024-01-25 10:23 | Day surgery (SDC) | payer OTHER, SELFPAY ==
[2024-01-25] VITALS (15 sets, daily range): BP systolic 113–137; BP diastolic 68–89; PULSE 87–101; RESP 11–21; TEMP 36.2–36.7; O2SAT 94–99; BMI 26.3
--- NOTE | 2024-01-25 | XR_ITS ---
WS: [id number] Exam: XR forearm LT 2V [id number] Date/Time of Exam: 01/25/2024 12:00 AM Reason For Exam: ROSIE PICS Intraoperative C-arm AP and lateral images of the mid LEFT forearm confirm removal of previously note d radial and ulnar screws and cortical plates. Postoperative changes in the adjacent soft tissues.
[2024-01-25] MEDS: gabapentin 300 mg Capsule PO (11:06)
[2024-01-25] MEDS: CELEcoxib 200 mg Capsule 400 MG PO (11:06)
[2024-01-25] MEDS: sodium chloride 0.9% 1,000 ML 30 ML IV (11:06)
[2024-01-25] MEDS: scopolamine 1.5 Patch 1 PATCH TRANSDERMA (11:06)
[2024-01-25] MEDS: acetaminophen 1,000 MG/100 ML PIGGYBACK 400 MG IV (11:06)
--- NOTE | 2024-01-25 11:13 | W.PM.OPSFHP ---
Same Day Surgery H&P Indication for Procedure/HPI DATE OF PROCEDURE: January 25, 2024 CHIEF COMPLAINT/INDICATIONFOR SURGICAL PROCEDURE: Retained hardware left forearm PREOP DIAGNOSIS: Retained painful hardware left radius and ulna PLANNED PROCEDURE: Operation Date: 01/25/24 12:10 Proposed Procedures p Hardware Removal Wrist Hardware Rmeoval Of Radius and Ulna(Left) - Natalie Pat MD Medications/Allergies* Home Medications Medication Instructions Recorded Confirmed Type No Known Home Medications 12/18/23 01/25/24 History Allergies/Adverse Reactions Allergy/AdvReac Type Severity Reaction Status Date / Time No Known Allergies Allergy Verified 01/23/24 14:24 Current Medications: Generic Name Dose Route Start Last Admin Trade Name Freq PRN Reason Stop Dose Admin Sodium Chloride 1,000 mls @ 30 mls/hr 01/25/24 10:45 01/25/24 11:06 Sodium Chloride 0.9% IV 01/26/24 10:44 30 mls/hr .Q24H ZACH Administration Pertinent History/Comorbid Conditions* Medical History (Updated 11/26/23 @ 18:04 by Leeann Walker MD) Endometriosis Diagnosed in 2017 at the time of surgery per patient. Records have been requested. Surgical History (Updated 06/02/22 @ 10:33 by Evon Levi MD) History of bunionectomy of left great toe S/P ovarian cystectomy 03/21/2015----diagnostic laparoscopy, exploratory laparotomy with repair of left hemorrhagic cyst of the ovary performed by Dr. Cronin at [facility]. Simultaneously laparoscopic appendectomy performed by Dr. Saji Forbes. - operative reports have been requested and scanned -At time of diagnostic laparoscopy a lot of fibrinous exudate was noted around the bowel and general surgery was consulted and appendix was visualized which was noted to be inflamed and removed. When pelvis was visualized an enlarged left ovary was noted with hemorrhagic cyst and a lot of fibrinous exudate and so laparotomy was performed. The hemorrhagic cyst was opened and suctioned out and no obvious signs of endometriosis identified however a portion of the lining was sent for pathology. Ovary was repaired and fibrinous exudate removed and irrigation performed and surgery completed. Status post excision of lipoma 2017--had a benign lipoma removed from her upper back Status post bunionectomy Had a bunion removed from her right foot in [facility] History of open reduction and internal fixation (ORIF) procedure left forearm both bone fracture in 07/2001 at [facility] Hx of fracture of clavicle 2002---had surgery done with plates placed Hx of appendectomy 2014--Pfannenstiel open procedure performed at time of left ovarian cystectomy--performed at [facility] Hx of unilateral oophorectomy 01/05/2017----- exploratory laparotomy, hysteroscopy, D&C, left salpingo-oophorectomy performed by Dr. Little at [facility]. ------> operative reports requested and scanned. Hysteroscopy was performed for menorrhagia and endometrium was noted to be thin, bilateral tubal ostia were visualized and ECC performed. Pfannenstiel incision done--moderate adhesions of the small bowel to the posterior uterus left adnexa and right fallopian tube the left tube and ovary were removed--endometrioma was noted. Family History (Updated 09/24/21 @ 13:27 by Mitali Mullen) Diabetes Grandmother paternal Heart disease Grandmother maternal Mother Breast cancer Family/Other Maternal aunts x 2, diagnosed in 40s and 50s Hypertension Mother Father Stroke Grandfather maternal Denies family history of Colon cancer Ovarian cancer Hyperlipidemia Uterine cancer Thyroid disease Social History Smoking and tobacco/nicotine status: never used tobacco/nicotine Substance/Drug Use: never Lives independently: Yes Household members: none Marital status: Single Number of children: 0 Current occupational status: employed Current occupation: sterile processing for [employer] Pertinent Exam Findings alert, oriented x 3, clear to auscultation bilaterally, regular rate & rhythm, operative site marked and procedure specific exam findings (2 incisions well-healed with no signs of infection) Recommendations Surgery/Procedure today Coding Level of Care Code Acute Code for Chg Fwd
[2024-01-25 11:32] LABS: OR HCG Qualitative Urine Negative (Negative)
--- NOTE | 2024-01-25 11:48 | P.ANESASSM_ITS ---
Pre-Anesthetic Assessment Height/Weight: Height 5 ft 6 in Weight 163 lb Temp Pulse Resp BP Pulse Ox O2 Del Method 97.2 F L 87 18 128/80 99 Room Air 01/25/24 10:41 01/25/24 10:41 01/25/24 10:41 01/25/24 10:41 01/25/24 10:41 01/25/24 10:42 Preop Diagnosis: Retained painful hardware left radius and ulna Operation Date: 01/25/24 12:10 Proposed Procedures p Hardware Removal Wrist Hardware Rmeoval Of Radius and Ulna(Left) - Natalie Pat MD Familial anesthetic complications: Ulnar neuropathy Last intake: Intake Last Liquid Date 01/24/24 Last Liquid Time 19:00 Last Solid Date 01/24/24 Last Solid Time 19:00 Social No alcohol and No tobacco Exam alert, oriented x 3, clear to auscultation bilaterally and regular rate & rhythm Airway Submandibular: within normal limits Cervical ROM: within normal limits Mallampati: Class I Dentition: full Anesthetic Plan ASA status: 1 Anesthesia: General Other: No prior issues with anesthesia NPO since midnight Patient had a previous ankle surgery without issues Denies cardiac or pulmonary issues METs greater than 4 Plan for general anesthesia with postop nerve block Medications/Allergies Home Medications Medication Instructions Recorded Confirmed Last Taken Type No Known Home Medications 12/18/23 01/25/24 Unknown History Allergies Allergy/AdvReac Type Severity Reaction Status Date / Time No Known Allergies Allergy Verified 01/23/24 14:24 Current Medications Generic Name Dose Route Start Last Admin Trade Name Freq PRN Reason Stop Dose Admin Sodium Chloride 1,000 mls @ 30 mls/hr 01/25/24 10:45 01/25/24 11:06 Sodium Chloride 0.9% IV 01/26/24 10:44 30 mls/hr .Q24H ZACH Administration [facility] Anesthesia Medical History Endometriosis Diagnosed in 2017 at the time of surgery per patient. Records have been requested. Surgical History History of bunionectomy of left great toe S/P ovarian cystectomy 03/21/2015----diagnostic laparoscopy, exploratory laparotomy with repair of left hemorrhagic cyst of the ovary performed by Dr. Cronin at [facility]. Simultaneously laparoscopic appendectomy performed by Dr. Saji Forbes. - operative reports have been requested and scanned -At time of diagnostic laparoscopy a lot of fibrinous exudate was noted around the bowel and general surgery was consulted and appendix was visualized which was noted to be inflamed and removed. When pelvis was visualized an enlarged left ovary was noted with hemorrhagic cyst and a lot of fibrinous exudate and so laparotomy was performed. The hemorrhagic cyst was opened and suctioned out and no obvious signs of endometriosis identified however a portion of the lining was sent for pathology. Ovary was repaired and fibrinous exudate removed and irrigation performed and surgery completed. Status post excision of lipoma 2018--had a benign lipoma removed from her upper back Status post bunionectomy Had a bunion removed from her right foot in [facility] History of open reduction and internal fixation (ORIF) procedure left forearm both bone fracture in 07/2001 at [facility] Hx of fracture of clavicle 2002---had surgery done with plates placed Hx of appendectomy 2014--Pfannenstiel open procedure performed at time of left ovarian cystectomy--performed at [facility] Hx of unilateral oophorectomy 01/05/2017----- exploratory laparotomy, hysteroscopy, D&C, left salpingo- oophorectomy performed by Dr. Little at [facility]. ------> operative reports requested and scanned. Hysteroscopy was performed for menorrhagia and endometrium was noted to be thin, bilateral tubal ostia were visualized and ECC performed. Pfannenstiel incision done--moderate adhesions of the small bowel to the posterior uterus left adnexa and right fallopian tube the left tube and ovary were removed--endometrioma was noted. Family History Family/Other Breast cancer Maternal aunts x 2, diagnosed in 40s and 50s Grandmother Diabetes paternal Heart disease maternal Mother Heart disease Hypertension Father Hypertension Grandfather Stroke maternal Denies family history of Colon cancer Ovarian cancer Hyperlipidemia Uterine cancer Thyroid disease Social History Smoking and tobacco/nicotine status: never used tobacco/nicotine Substance/Drug Use: never Lives independently: Yes Household members: none Marital status: Single Number of children: 0 Current occupational status: employed Current occupation: sterile processing for [employer] Anesthesia Cardiac Studies: No Data to Display
[2024-01-25] MEDS: ceFAZolin 2,000 mg SDV 2000 MG IVP (11:53)
[2024-01-25] MEDS: ceFAZolin 1,000 mg SDV 1000 MG IRRIGATION (12:50)
[2024-01-25] MEDS: fentaNYL 50 mcg/mL INJ 2mL IVP (15:17)
--- NOTE | 2024-01-25 15:20 | ANES.PROC ---
Anesthesia Procedures Procedure/Date: 01/25/24 Nerve Block ^: Nerve Block 1: Main Anesthesia: other Time Out Performed: Yes Consent: requested by attending/covering physician and from patient Nerve block location: supraclavicular Anesthesia monitors applied: pulse oximetry, EKG, BP cuff and oxygen Nerve block position: semi sitting Anesthetic Used: ropivicaine 0.5% Amount of anesthesia used (mL): 25 Ultrasound used to: recognize landmarks Nerve Stimulator Used?: Yes Interscalene/Femoral BLK: other needle Injection: neg aspiration of heme Patient Tolerated Procedure: well Complications: none
--- NOTE | 2024-01-25 15:22 | PM.OP ---
Operative Report Date of procedure: January 25, 2024 Pre-op diagnosis: Painful retained orthopedic hardware left radius and ulna Post-op diagnosis: Painful retained orthopedic hardware left radius and ulna Post-op findings: Buried radius and ulnar plates with overgrowth of bone. Procedure done: Removal hardware radius and ulna plate and screws. Removal of overgrowth of bone from plates. Implants: Removed Specimens removed/disposition: Plates and screws to be sent with patient Pathology: None Surgeon: Natalie Pat MD Supervisor Word Processing: LORENZO Fay, who assist assistance was required for positioning, retraction, and closure. Anesthesia: General (Per LMA, ASA 1) Estimated blood loss (mL): 5 Tourniquet time (min): 135 (At 250 mmHg) IV fluids (mL): 1,200 Urine output (mL): 0 (No Esposito) Complications: None Condition: stable Disposition: PACU (Then return to same-day surgery for discharge to home) Brief History: This 34-year-old woman presented complaining of pain from retained hardware following open reduction internal fixation of both bone forearm fracture at the age of approximately 13. The patient had the hardware placed, and she notes that it has been painful for her. Workup demonstrated there was no evidence of nonunion or infection. Plans were made for hardware removal after discussion with the patient of the risks and complications associated with it. Questions were answered, and consents were signed. Procedure: The patient was brought to the operating theater. Patient was administered a general anesthetic per LMA, ASA 1. This was well-tolerated. Following the surgical procedure with confirmation of neurologic status being intact in the PACU, the patient was administered a postoperative regional block. The tourniquet was elevated to 250 mmHg for a total tourniquet time of 135 minutes. The patient was also given Ancef 2 g preoperatively. The arm was then prepped and draped with DuraPrep in usual fashion with the arm draped free. A surgical pause was performed. At the time, the surgical pause, we confirmed the site and side of surgery. We also confirmed the patient's identity, appropriate and timely administration of preoperative antibiotics and preoperative surgical markings. Patient's previous incisions have been marked preoperatively. Following exsanguination the arm and elevation of the tourniquet as noted above, patient's radial incision was opened. Blunt dissection was accomplished down onto the surgical plate. The plate was completely buried with overgrown bone. This had to be removed with a combination of rongeurs and multiple osteophytes as well as a dental pick to take bone out of the screws. We were able to remove the 5 screws from the plate. Subsequently, the plate was chiseled off of the bone. [place] and chisels were used to remove prominent bone from within the screw holes on the bone. And also, the edges of the bone that had grown up over the plate were smoothed. Once the bone was smoothed and felt not to be problematic, wound was copiously irrigated. Subcutaneous tissues were closed with 3-0 Monocryl and the skin was closed with a running 4-0 Monocryl subcuticular suture. Attention was then directed to the ulnar aspect of the arm. The elbow was flexed to allow access to the ulnar aspect of the arm. Again, previous incision was opened to allow access to the plate. Blunt dissection was utilized to dissect down onto the plate. This plate was also completely buried in bone requiring removal of bone utilizing osteotomes and rongeur. This was accomplished with great difficulty. Dental picks were also utilized. 6 screws were removed from this plate and then the plate was chiseled off the bone as well. Again, combination of rongeur and osteophytes were used to smooth the bone both along the edges rated overgrown the plate and the ends as well. Also each screw hole had to be debrided. Following this, the wound was copiously irrigated. Again soft tissues were closed with 3-0 Monocryl in the subcutaneous tissues and a running 4-0 Monocryl in a subcuticular tissues. Following closure of the wounds, they were dressed with Dermabond Prineo, OpSite, ABD, sterile soft roll, and an Dejon wrap. Local anesthesia was not utilized to avoid volume to the area. Also, plans have been made for postoperative regional block. When seen in the recovery room, the patient was neurologically intact and therefore this block was administered. The plates and screws will be sent with the patient following sterilization. The tourniquet was released after 135 minutes. There were no complications. The procedure was well-tolerated, and the patient will be discharged to home. Related Problem List Diagnoses (1) Fracture, radius and ulna, shaft: (2) Painful orthopaedic hardware:
[2024-01-25] MEDS: ondansetron 2 mg/ML SDV 2 mL 4 MG IVP (16:25)
[2024-01-25] MEDS: metoclopramide 5 mg/mL SDV 2 mL 10 MG IVP (16:53)
--- NOTE | 2024-01-25 17:25 | ANE.PACU2 ---
Inpatient post-anesthesia follow up: Airway intact: Yes Vital signs: Temperature 98.1 F Pulse Rate 99 Respiratory Rate 18 Blood Pressure 120/84 Pulse Oximetry 94 Oxygen Delivery Me thod Room Air Oxygen Flow Rate Fraction of Inspir ed Oxygen Hydration adequate: Yes Nausea and vomiting: Yes Pain level: 1 Mental status: Baseline Additional Comments: Patient was nauseous in phase 2. Patient was treated with multi antiemetics. Stated she was feeling much better when she left
== END 2024-01-25 17:25 | disposition home or self-care (01) ==
PROVIDERS: Student in an Organized Health Care Education/Training Program; PCP Family Medicine; Visit Provider Specialist
PROC: (CPT 20680; principal; 2024-01-25 12:00)
DX: T84.84XA Pain due to internal orthopedic prosthetic devices, implants and grafts, initial encounter (principal); Y82.8 Other medical devices associated with adverse incidents
CPT/HCPCS: 20680; 73090; 76000; 81025; J0131; J0690; J1100; J1170; J2250; J2405; J2704; J2765; J3010; J7030

== ENCOUNTER → 2024-03-06 07:54 | Outpatient (BNVA) | payer OTHER, SELFPAY | PROVIDERS: PCP Family Medicine; Visit Provider Nurse Practitioner | DX: Z98.890 Other specified postprocedural states (principal); T84.84XA Pain due to internal orthopedic prosthetic devices, implants and grafts, initial encounter; Y79.2 Prosthetic and other implants, materials and accessory orthopedic devices associated with adverse incidents | CPT/HCPCS: 73090 ==

== ENCOUNTER → 2025-04-09 07:08 | Outpatient (BNVA) | payer OTHER, SELFPAY | PROVIDERS: PCP Family Medicine; Visit Provider Podiatrist Foot & Ankle Surgery | DX: M25.571 Pain in right ankle and joints of right foot (principal); M65.971 Unspecified synovitis and tenosynovitis, right ankle and foot | CPT/HCPCS: 73610 ==

== ENCOUNTER → 2025-04-22 13:21 | Outpatient (BNVA) | payer OTHER, SELFPAY | PROVIDERS: PCP Family Medicine; Visit Provider Family Medicine | DX: Z00.00 Encounter for general adult medical examination without abnormal findings (principal) | CPT/HCPCS: 80053; 80061; 85025 ==